=== PATIENT | female | born 1995 | race Native Hawaiian/Other Pacific Islander ===

== ENCOUNTER 2017-09-01 11:20 | Inpatient (IN) | payer SELFPAY ==
[2017-09-01] MEDS ORDERED: Sodium Chloride 0.9% 1,000 ML IV STA (12:05)
--- NOTE | 2017-09-01 12:35 | ED PDOC ---
HPI: Psych/Substance Abuse Time Seen by Provider: 09/01/17 11:47 Chief Complaint (Nursing): Psychiatric Evaluation Chief Complaint (Provider): Psychiatric evaluation History Per: Patient History/Exam Limitations: no limitations Onset/Duration Of Symptoms: Hrs (several) Suicide/Self Injury Attempted (Context): Cut Wrists Modifying Factor(s): None Associated Symptoms: Suicidal Thoughts, Suicidal Plan (cut her wrist) Additional Complaint(s): Nikolas Rico is a 22 year old female, with no past medical history, who was brought to the emergency department by EMS after she cut her wrist onset several hours ago. She denies any homicidal ideations, taking pills, alcohol or drugs. No further medical complaints. PMD: None provided. Past Medical History Reviewed: Historical Data, Nursing Documentation, Vital Signs Vital Signs: Last Vital Signs Temp 99.8 F H 09/01/17 11:28 Pulse 80 09/01/17 11:28 Resp 20 09/01/17 11:28 BP 117/83 09/01/17 11:28 Pulse Ox 100 09/01/17 11:28 - Family History Family History: States: Unknown Family Hx - Home Medications Home Medications: Ambulatory Orders Medication Instructions Recorded No Known Home Med 09/01/17 - Allergies Allergies/Adverse Reactions: Allergies Allergy/AdvReac Type Severity Reaction Status Date / Time No Known Allergies Allergy Verified 09/01/17 12:03 Review of Systems ROS Statement: Except As Marked, All Systems Reviewed And Found Negative Psych: Positive for: Suicidal ideation (with attempt. Cut her wrists). Negative for: Other (Homicidal ideation) Physical Exam - Reviewed Nursing Documentation Reviewed: Yes Vital Signs Reviewed: Yes - Physical Exam Appears: Positive for: Non-toxic. Negative for: Well (lethargic but responsive to verbal stimuli) Head Exam: Positive for: ATRAUMATIC, NORMAL INSPECTION, NORMOCEPHALIC Skin: Positive for: Normal Color, Warm, Dry Eye Exam: Positive for: Normal appearance, EOMI, PERRL Neck: Positive for: Normal, Painless ROM, Supple Cardiovascular/Chest: Positive for: Regular Rate, Rhythm. Negative for: Murmur Respiratory: Positive for: Normal Breath Sounds. Negative for: Respiratory Distress Pulses-Radial (L): 1+ Gastrointestinal/Abdominal: Positive for: Normal Exam, Bowel Sounds, Soft. Negative for: Tenderness, Guarding, Rebound Back: Positive for: Normal Inspection. Negative for: L CVA Tenderness, R CVA Tenderness Extremity: Positive for: Normal ROM, Other (x2 4cm lacerations to left anterior wrist, FROM all joints of hand, FROM @ wrist, sensation intact, MS 5/5, <3 sec cap refill). Negative for: Deformity, Swelling Neurologic/Psych: Positive for: Alert, Oriented - Laboratory Results Result Diagrams: 09/01/17 12:51 09/01/17 12:51 - ECG O2 Sat by Pulse Oximetry: 100 (RA) Pulse Ox Interpretation: Normal Medical Decision Making Medical Decision Making: Initial Impression: Suicidal attempt, wrist laceration Initial Plan: --Head w/o contrast [CT] --EKG --Acetaminophen --Alcohol Serum --Comp Metabolic Panel --Drug screen, Urine --HCQ, Qualitative Serum --Salicylate --Crisis evaluation --Urine dipstick --Urine --CBC w/ differential --NS IV 1,000 ml @ 1,000 mls/hr --Adacel 0.5 ml IM --1:1 Obs for suicide precaution --reevaluation 1300 -The area was prepped and draped in the usual sterile fashion. 3 ccs of 1% Lidocaine w/ epi was used. The wound was closed with 4.0 proline and dermabond. There was adequate approximation. In total, 9 sutures were used. Good closure and hemostasis. The patient tolerated the procedure well and there were no complications. CSM remains intact. Post procedure dressing applied. [address] IMPRESSION: Normal CT of the head Scribe Attestation: Documented by Khurram Alvarez, acting as a scribe for Tamy Lewis MD Provider Scribe Attestation: All medical record entries made by the Scribe were at my direction and personally dictated by me. I have reviewed the chart and agree that the record accurately reflects my personal performance of the history, physical exam, medical decision making, and the department course for this patient. I have also personally directed, reviewed, and agree with the discharge instructions and disposition. Procedures - Laceration/Wound Repair Left Anterior Wrist Wound Length (cm): 4 Wound's Depth, Shape: superficial Wound Explored: clean Anesthesia: Lidocaine w/ Epi (1%) Volume Anesthetic (ccs): 3 Wound Repaired With: Sutures, Skin adhesive (dermabond) Suture Size/Type: 4:0, proline Number of Sutures: 9 Wound Complexity: Simple Disposition - Clinical Impression Clinical Impression: Wrist laceration, Depression - Disposition Disposition Time: 15:55 Condition: STABLE - Pt Status Changed To: Hospital Disposition Of: Inpatient - Admit Certification Admit to Inpatient:: After my assessment, the patient will require hospitalization for at least two midnights. This is because of the severity of symptoms shown, intensity of services needed, and/or the medical risk in this patient being treated as an outpatient. - POA Present On Arrival: Falls Or Trauma
[2017-09-01] MEDS ORDERED: Lidocaine 2% w Epi 1:100,000 Inj IJ ONE (12:44)
[2017-09-01 13:16] LABS: BASO % 0.6 % (0.0-2.0); EOS % 0.1 % (0.0-4.0); HEMATOCRIT 30.5 % (34.0-47.0); LYMPH # 1.2 K/uL (1.0-4.3); LYMPH % 33.7 % (20.0-40.0); MEAN CELL VOLUME 75.3 fl (81.0-99.0); MEAN CORPUSCULAR HEMOGLOBIN 23.3 pg (27.0-31.0); MEAN CORPUSCULAR HGB CONC 30.9 g/dL (33.0-37.0); MEAN PLATELET VOLUME 9.6 fl (7.2-11.7); MONO # 0.3 K/uL (0.0-0.8); MONO % 8.3 % (0.0-10.0); NEUT # 2.1 K/uL (1.8-7.0); NEUT % 57.3 % (50.0-75.0); WHITE BLOOD COUNT 3.7 K/uL (4.8-10.8)
[2017-09-01 13:27] LABS: ALB/GLOB RATIO 1.5 (1.0-2.1); ALKALINE PHOSPHATASE 40 U/L (38-126); ALT/SGPT 30 U/L (9-52); AST/SGOT 18 U/L (14-36); BILIRUBIN,TOTAL 0.3 mg/dl (0.2-1.3); BLOOD UREA NITROGEN 17 mg/dl (7-17); CALCIUM 8.9 mg/dL (8.4-10.2); CARBON DIOXIDE 24 mmol/L (22-30); CHLORIDE 108 mmol/L (98-107); GFR AFRICAN-AMERICAN > 60; GLUCOSE,RANDOM 96 mg/dL (65-105); POTASSIUM 3.7 MMOL/L (3.6-5.0); SODIUM 143 mmol/l (132-148); TOTAL PROTEIN 7.7 G/DL (6.3-8.2)
--- NOTE | 2017-09-01 13:47 | CT ---
PROCEDURE: CT HEAD WITHOUT CONTRAST. HISTORY: SI COMPARISON: None available. TECHNIQUE: Axial computed tomography images were obtained through the head/brain without intravenous contrast. Radiation dose: Total exam DLP = 1252.8 mGy-cm. This CT exam was performed using one or more of the following dose reduction techniques: Automated exposure control, adjustment of the mA and/or kV according to patient size, and/or use of iterative reconstruction technique. FINDINGS: HEMORRHAGE: No intracranial hemorrhage. BRAIN: No mass effect or edema. No atrophy or chronic microvascular ischemic changes. VENTRICLES: Unremarkable. No hydrocephalus. CALVARIUM: Unremarkable. PARANASAL SINUSES: Unremarkable as visualized. No significant inflammatory changes. MASTOID AIR CELLS: Unremarkable as visualized. No inflammatory changes. OTHER FINDINGS: None. IMPRESSION: Normal CT of the Head.
[2017-09-01 18:05] VITALS: O2SAT 100
[2017-09-01] MEDS ORDERED: Magnesium Hydroxide Susp 30 ml UD PO PRN (20:05)
--- NOTE | 2017-09-01 20:22 | PCM.BM ---
<MineMarkken Decker - Last Filed: 09/01/17 20:20> Treatment Plan Problems - Problems identified on initial assessmt Hopelessness/Helplessness Date Initiated: 09/01/17 Assessment reference: NA Status: Active Altered Sleep Patterns Date Initiated: 09/01/17 Assessment reference: NA Status: Active Treatment assets and liabiliti Patient Assests: adapts well, educated, ADL independent, physically healthy, cognitively intact Patient Liabilities: poor support system, language/speech - Milieu Protocol Maintain good personal hygiene: daily Assist patient to perform ADL's, every shift Encourage regular showers, every shift Remind patient to perform daily oral care Conduct patient checks and document Observation sheet: Q15 minutes Maintain personal safety: daily Educate patient to report safety concerns to staff, daily Monitor environment for contraband/sharps Medication safety: Monitor for expected outcome, potential side effects: daily, Assess barriers to learning: daily, Assess readiness for medication education: every shift <Ezequiel Dutton - Last Filed: 09/04/17 14:03> - Diagnosis (1) Depression Status: Acute Interventions: 09/04/17 14:03 psychotherapy, pharmacotherapy <John Ruth - Last Filed: 09/04/17 15:18> Family Contact Family involvement: Famliy/SO not involved Family contact: Patient agrees to contact, Telephone contact initiated by staff Family contact name: Jennifer (friend) - [phone] Family contacted how many times per week?: 1 Family contact comment: Jennifer is pt's roommate who reported she does not really know pt as she only moved in 5 months ago and is fairly isolative. Pt's family and main supports all reside in [place] so obtaining collateral from them is not possible. - Goals for Treatment Patient goals for treatment: Pt lacks insight and could not offer goals, except to be discharged and complete her school work. Discharge/Continuing Care - Education Needs Education Needs: Patient Medication, Patient Diagnosis/Disease Process, Patient Coping Skills, Patient Community resources, Patient Personal Hygiene/Grooming, Patient Aftercare Safety Plan - Discharge Discharge Criteria: Tolerates medication w/o severe side effects, Free of Suicidal thoughts, Free of agitation, Normal sleep pattern, Reduction of target symptoms Discharge to:: Home - Additional Comments 09/04/17 15:17 Pt was agreeable in team, yet lacked appropriate insight. Pt was vague, superficial and placating of staff. - Treatment Team Participation Discussed with Family/SO: No Was Patient/Family/SO present at Treatment Team Meeting: Yes (Pt attended. )
[2017-09-02 07:27] LABS: T4 7.05 ug/dl (5.5-11.0)
[2017-09-02 07:40] LABS: THYROID STIMULATING HORMONE 0.59 mIU/ML (0.46-4.68)
--- NOTE | 2017-09-02 07:48 | CARD ---
APPROVED REPORT EKG Measurement Heart [id number] <Conclusion> Normal sinus rhythm Normal ECG
--- NOTE | 2017-09-02 09:20 | CP.PCM.CON ---
History of Present Illness - History of Present Illness History of Present Illness: Hospitalist Consult Note 22 year old female patient unremarkable PMHx admitted to psychiatric unit for suicidal ideation. Patient is AAOx3, pleasant, cooperative, NAD. Patient states she was brought to [facility] ED by ambulance after she cut the inside of her left wrist several hours prior to presentation. Patient denies suicidal or homicidal ideations. Patient denies auditory or visual hallucinations. Patient denies any acute events overnight. Patient otherwise denies any medical problems. Denies N/V/F/D/C/SOB/palpitations. PMHx: unremarkable PSH: denies FH: denies SH: denies ETOH/tobacco/illicit drug use; student at [employer] Meds: none All: NKDA Review of Systems - Review of Systems All systems: reviewed and no additional remarkable complaints except (as per HPI ) Past Patient History - Past Social History Smoking Status: denies - CARDIAC Hx Cardiac Disorders: No Hx Hypertension: No - PULMONARY Hx Respiratory Disorders: No Hx Tuberculosis: No - NEUROLOGICAL Hx Neurological Disorder: No HX Cerebrovascular Accident: No Hx Seizures: No - HEENT Hx HEENT Problems: No - RENAL Hx Chronic Kidney Disease: No - ENDOCRINE/METABOLIC Hx Endocrine Disorders: No - HEMATOLOGICAL/ONCOLOGICAL Hx Blood Disorders: No Hx Cancer: No Hx Human Immunodeficiency Virus (HIV): No - INTEGUMENTARY Hx Dermatological Problems: No - MUSCULOSKELETAL/RHEUMATOLOGICAL Hx Musculoskeletal Disorders: No - GASTROINTESTINAL Hx Gastrointestinal Disorders: No - GENITOURINARY/GYNECOLOGICAL Hx Genitourinary Disorders: No Hx Sexually Transmitted Disorders: No - PSYCHIATRIC Hx Substance Use: No - SURGICAL HISTORY Hx Surgeries: No - ANESTHESIA Hx Anesthesia: No Meds Allergies/Adverse Reactions: Allergies Allergy/AdvReac Type Severity Reaction Status Date / Time No Known Allergies Allergy Verified 09/01/17 12:03 - Medications Medications: Current Medications Acetaminophen (Tylenol 325mg Tab) 650 mg PO Q4 PRN PRN Reason: Pain, moderate (4-7) Diphenhydramine HCl (Benadryl) 50 mg PO HS PRN PRN Reason: Sleep Lorazepam (Ativan) 1 mg PO Q4 PRN PRN Reason: Anxiety/Agitation Last Admin: 09/01/17 21:51 Dose: 1 mg Magnesium Hydroxide (Milk Of Magnesia) 30 ml PO HS PRN PRN Reason: Constipation Physical Exam - Constitutional Appears: Well, Non-toxic, No Acute Distress - Head Exam Head Exam: ATRAUMATIC, NORMAL INSPECTION, NORMOCEPHALIC - Eye Exam Eye Exam: EOMI, Normal appearance, PERRL Pupil Exam: NORMAL ACCOMODATION - ENT Exam ENT Exam: Mucous Membranes Moist, Normal Exam, Normal External Ear Exam - Neck Exam Neck exam: Positive for: Full Rom, Normal Inspection. Negative for: Tenderness - Respiratory Exam Respiratory Exam: Clear to Auscultation Bilateral, NORMAL BREATHING PATTERN. absent: Rales, Rhonchi, Wheezes - Cardiovascular Exam Cardiovascular Exam: REGULAR RHYTHM, +S1, +S2. absent: Diastolic murmur, Gallop , JVD, Systolic Murmur - GI/Abdominal Exam GI & Abdominal Exam: Normal Bowel Sounds, Soft. absent: Guarding, Tenderness - Rectal Exam Rectal Exam: Deferred - Extremities Exam Additional comments: Dressing to left wrist appears clean/dry/intact with no strikethrough noted. No tenderness to palpation left wrist. Mild pain upon ROM left wrist. Nonpitting edema noted to left hand. No edema noted to left forearm. - Back Exam Back exam: FULL ROM, NORMAL INSPECTION. absent: CVA tenderness (L), CVA tenderness (R), tenderness - Neurological Exam Neurological exam: Alert, CN II-XII Intact, Oriented x3 - Psychiatric Exam Psychiatric exam: Normal Affect, Normal Mood - Skin Skin Exam: Normal Color, Warm Results - Vital Signs Recent Vital Signs: Last Vital Signs Temp 97.2 F L 09/01/17 19:30 Pulse 68 09/01/17 20:04 Resp 18 09/01/17 20:04 BP 110/65 09/01/17 19:30 Pulse Ox 100 09/01/17 18:05 - Labs Result Diagrams: 09/01/17 12:51 09/01/17 12:51 Labs: Laboratory Results - last 24 hr 09/01/17 09/01/17 09/01/17 12:51 12:51 12:51 WBC 3.7 L RBC 4.05 Hgb 9.4 L Hct 30.5 L MCV 75.3 L MCH 23.3 L MCHC 30.9 L RDW 18.0 H Plt Count 145 MPV 9.6 Neut % (Auto) 57.3 Lymph % (Auto) 33.7 [place] % (Auto) 8.3 Eos % (Auto) 0.1 Baso % (Auto) 0.6 Neut # 2.1 Lymph # 1.2 [place] # 0.3 Eos # 0.0 Baso # 0.0 Sodium Potassium Chloride Carbon Dioxide Anion Gap BUN Creatinine Est GFR ( Amer) Est GFR (Non-Af Amer) Random Glucose Calcium Total Bilirubin AST ALT Alkaline Phosphatase Total Protein Albumin Globulin Albumin/Globulin Ratio Triglycerides Cholesterol LDL Cholesterol Direct HDL Cholesterol Thyroxine (T4) TSH 3rd Generation Serum HCG, Qual Salicylates < 1.0 Urine Opiates Screen Urine Methadone Screen Acetaminophen < 10.0 L Ur Barbiturates Screen Ur Phencyclidine Scrn Ur Amphetamines Screen U Benzodiazepines Scrn U Oth Cocaine Metabols U Cannabinoids Screen Alcohol, Quantitative < 10 09/01/17 09/01/17 09/02/17 12:51 19:26 06:45 WBC RBC Hgb Hct MCV MCH MCHC RDW Plt Count MPV Neut % (Auto) Lymph % (Auto) [place] % (Auto) Eos % (Auto) Baso % (Auto) Neut # Lymph # [place] # Eos # Baso # Sodium 143 Potassium 3.7 Chloride 108 H Carbon Dioxide 24 Anion Gap 15 BUN 17 Creatinine 0.8 Est GFR ( Amer) > 60 Est GFR (Non-Af Amer) > 60 Random Glucose 96 Calcium 8.9 Total Bilirubin 0.3 AST 18 ALT 30 Alkaline Phosphatase 40 Total Protein 7.7 Albumin 4.6 Globulin 3.1 Albumin/Globulin Ratio 1.5 Triglycerides 53 Cholesterol 158 LDL Cholesterol Direct 96 HDL Cholesterol 38 Thyroxine (T4) 7.05 TSH 3rd Generation 0.59 Serum HCG, Qual Negative Salicylates Urine Opiates Screen Negative Urine Methadone Screen Negative Acetaminophen Ur Barbiturates Screen Negative Ur Phencyclidine Scrn Negative Ur Amphetamines Screen Negative U Benzodiazepines Scrn Negative U Oth Cocaine Metabols Negative U Cannabinoids Screen Negative Alcohol, Quantitative Assessment & Plan (1) Self mutilating behavior Assessment and Plan: Management per psychiatry Status: Acute
[2017-09-02 13:32] LABS: IRON 24 ug/dL (37-170)
--- NOTE | 2017-09-02 14:38 | PCM.PSYCH ---
Initial Psychiatric Evaluation - Initial Psychiatric Evaluation Type of Admission: Voluntary Legal Status: Capacity Chief Complaint (in patient's own words): i always have bad luck so I was sad Patient's Reaction to Hospitalization: pt signed voluntary History of Present Illness and Precipitating Events: Patient is a 22 year old single female without previous formal psychiatric diagnosis or treatment, business student at [employer] Patient called the ambulance yesterday after she cut her left wrist. Patient' s self inflicted wounds were deep and nedded treatment in ER She IS BY HERSELF NO FAMILY, stated that life has her stressed out.PT minimizes her attempt and her symptoms, stated she was upset because of concert she wanted to attend, pt presenting with circumstantial thought process and limited insight, denied any current S/H I denied perceptual disturbances. [ ] Current Medications: Active Medications Generic Name Dose Route Start Last Admin Trade Name Freq PRN Reason Stop Dose Admin Acetaminophen 650 mg 09/01/17 20:05 Tylenol 325mg Tab PO Q4 PRN Pain, moderate (4-7) Diphenhydramine HCl 50 mg 09/01/17 20:10 Benadryl PO HS PRN Sleep Escitalopram Oxalate 5 mg 09/03/17 12:14 Lexapro PO DAILY EMILIANA Lorazepam 1 mg 09/01/17 20:05 09/01/17 21:51 Ativan PO 1 mg Q4 PRN Administration Anxiety/Agitation Magnesium Hydroxide 30 ml 09/01/17 20:05 Milk Of Magnesia PO HS PRN Constipation Past Psychiatric History - Past Psychiatric History Explanation of prior treatment: pt denied any previous psychiatric treatment History of Abuse: denied History of ETOH/Drug Use: denied History of Family Illness: denied Pertinent Medical Hx (Current Medical&Sleep Prob, Allergies): Allergies Allergy/AdvReac Type Severity Reaction Status Date / Time No Known Allergies Allergy Verified 09/01/17 12:03 No Known Home Med 09/01/17 Mental Status Examination - Personal Presentation Personal Presentation: Looks stated age - Affect Affect: Flat - Motor Activity Motor Activity: Psychomotor Retardation - Reliability in Providing Information Reliability in Providing Information: Poor, due to altered mood - Speech Speech: Tangential - Mood Mood: Depressed Additional comments: inappropriate affect - Formal Thought Process Formal Thought Process: Circumstantial - Hallucinations/Delusions Additional comments: denied perceptual disturbances, non elicited - Obsessions/Compulsions Obsessions: No Compulsions: No - Cognitive Functions Orientation: Person, Place Attention/Concentration: Easily distracted Abstract Thinking: [place] Judgement: Imparied, as evidence by: Lack of insight into illness Memory: Recent intact, as evidence by: Ability to recall events of the day - Risk Risk: Suicidal, Self-mutilation - Strength & Assets Inventory Strength & Assets Inventory: Education - Limitations Additional comments: poor insight, poor social support DSM 5 DX - DSM 5 DSM 5 Diagnosis: depression - Recommended/Plan of Treatment Treatment Recommendations and Plan of Treatment: start lexapro 5 mg with plan to uptitrate CBT and group therapy monitor pt for psychopharmacological effect and side effect profile
[2017-09-02 21:22] LABS: FOLATE 6.4 ng/mL
--- NOTE | 2017-09-03 10:26 | PCM.PYCHPN ---
Psychiatric Progress Note - Psychiatric Progress Note Patient seen today, length of contact: pt evaluated discussed with team chart reviewed Patient Chief Complaint: I want to go home Problems Identified/Issues Discussed: pt seen in bed, isolative, refused to attend groups yesterday, pt minimizing her symptoms, guarded with limited insight into her illness denies any current S/H I denied perceptual disturbances, refusing after care Medical Problems: pt denied any previous psychiatric treatment DSM 5 Symptoms Update: major depression Medication Change: Yes (increase lexapro) Medical Record Reviewed: Yes Mental Status Examination - Cognitive Function Orientation: Person, Place Attention: WNL Concentration: WNL Association: WNL Fund of Knowledge: [facility] Decription of patient's judgement and insights: poor judgment, poor impulse control limited insight , l - Mood Mood: Depressed - Affect Affect: Flat Additional comments: not appropriate to thought content with isolation of affect - Speech Speech: Soft - Formal Thought Process Formal Thought Process: Circumstantial Psychotic Thoughts and Behaviors: pt denied any psychotic symptoms , non elicited - Suicidal Ideation Suicidal Ideation: No - Homicidal Ideation Homicidal Ideation: No Goal/Treatment Plan - Goal/Treatment Plan Progress Toward Problem(s) and Goals/Treatment Plan: increase exapro to 10 mg CBT and group therapy monitor pt for psychopharmacological effect and side effect profile
--- NOTE | 2017-09-03 12:13 | US ---
PROCEDURE: HISTORY: Cut L wrist COMPARISON: None available. STUDY DESCRIPTION: TECHNIQUE: Grayscale and duplex Doppler evaluation of the bilateral upper extremities was performed. Report prepared by technologist and radiologist. FINDINGS: RIGHT UPPER EXTREMITY: * Right arm was not imaged. . LEFT UPPER EXTREMITY: * Prox SCA : Peak Systolic Velocity - 102 centimeters/second: Doppler Waveform: Triphasic.: Plaque description - * Distal SCA: Peak Systolic Velocity - 102 centimeters/second: Doppler Waveform: Triphasic.: Plaque description - * Axillary: Peak Systolic Velocity - 69 centimeters/seconds. Normal doppler Waveform: Triphasic.: Plaque description - * Brachial o Proximal Segment: Peak Systolic Velocity - 77 centimeters/sec: Doppler Waveform: Triphasic.: Plaque description - none o Distal Segment: Peak Systolic Velocity - 94 cm/sec: Doppler Waveform: Triphasic.: Plaque description - none * Radial o Proximal Segment: Peak Systolic Velocity - 34 centimeters/second: Doppler Waveform: Triphasic.: Plaque description - none o Distal Segment: Peak Systolic Velocity - patent: Doppler Waveform: Triphasic.: Plaque description - * Ulnar o Proximal Segment: Peak Systolic Velocity - 62 cm/sec: Doppler Waveform: Triphasic.: Plaque description - no appreciable injury. o Distal Segment: Peak Systolic Velocity - patent: Doppler Waveform: Triphasic.: Plaque description - no appreciable injury. OTHER FINDINGS: Left common carotid artery patent. IMPRESSION: No appreciable duplex ultrasound evidence of left arm arterial injury or occlusion. This agrees with preliminary report provided by [facility]. If there is strong clinical concern CTA or MRA should be obtained.
--- NOTE | 2017-09-04 14:25 | PCM.PYCHPN ---
Psychiatric Progress Note - Psychiatric Progress Note Patient seen today, length of contact: pt evaluated discussed with team chart reviewed Patient Chief Complaint: I did not think it was a big deal, I do not need help Problems Identified/Issues Discussed: pt evaluated in treatment team, patient presenting with isolation of affect, smiling when discussing her suicidal attempt, rationalizing the fact that she did cut her wrist , refusing to be linked to after care and minimizing her symptoms, pt not attending groups tends to be isolative guarded with limited insight into her illness, denies any current S/H I denied perceptual disturbances, spoke with room mate gregory verma [phone] upon pt consent she stated she knows pt since july however pt tends to keep to herself and to be isolative in her room, so unable to give any information in reference to pt Medical Problems: non reported DSM 5 Symptoms Update: major depression Medication Change: No Medical Record Reviewed: Yes Mental Status Examination - Cognitive Function Orientation: Person, Place Attention: WNL Concentration: Poor Association: WNL Fund of Knowledge: WNL Decription of patient's judgement and insights: poor judgment, poor impulse control limited insight , l - Mood Mood: Depressed - Affect Affect: Flat Additional comments: isolation of affect, inappropriate to thought content - Speech Speech: Soft - Formal Thought Process Formal Thought Process: Circumstantial Psychotic Thoughts and Behaviors: pt denied any psychotic symptoms , non elicited, yet presents with lack of touch with reality - Suicidal Ideation Suicidal Ideation: No - Homicidal Ideation Homicidal Ideation: No Goal/Treatment Plan - Goal/Treatment Plan Need for Continued Stay: Severe depression anxiety, Discharge may exacerbated symptoms Progress Toward Problem(s) and Goals/Treatment Plan: pt continues to minimize her symptoms, and refusing to be linked to psychiatric services requesting discharge and signed 48 hour notice, pt at current mental status continues to be high risk and needs continuity of care, with poor social support on the outside pt referred to screening services for possible involuntary admission and continuity of care continue with lexapro to 10 mg CBT and group therapy monitor pt for psychopharmacological effect and side effect profile
[2017-09-04 16:27] LABS: RBC URINE 662 /hpf (0-3); URINE BACTERIA OCC (<OCC); URINE BILIRUBIN NEGATIVE (NEGATIVE); URINE BLOOD LARGE (NEGATIVE); URINE COLOR RED (YELLOW); URINE GLUCOSE (UA) NEG (Normal); URINE KETONE NEGATIVE (NEGATIVE); URINE LEUKOCYTE ESTERASE LARGE Leu/uL (Negative); URINE PROTEIN 100 mg/dL (NEGATIVE); URINE UROBILINOGEN 0.2-1.0 mg/dL (0.2-1.0); WBC URINE 156 /hpf (0-5)
--- NOTE | 2017-09-05 10:31 | RAD ---
PROCEDURE: CHEST RADIOGRAPH, 1 VIEW HISTORY: commit COMPARISON: None available. FINDINGS: LUNGS: Clear. PLEURA: No pneumothorax or pleural fluid seen. CARDIOVASCULAR: Normal. OSSEOUS STRUCTURES: No significant abnormalities. VISUALIZED UPPER ABDOMEN: Normal. OTHER FINDINGS: None. IMPRESSION: No active disease.
--- NOTE | 2017-09-05 11:51 | PCM.PYCHPN ---
Psychiatric Progress Note - Psychiatric Progress Note Patient seen today, length of contact: pt evaluated discussed with team chart reviewed Patient Chief Complaint: pt still feels depressed and admitted for severe depression and cutting he wrist and minimises her depression and wrote a 48 hour and has been accepted for transfer to [facility] [place] Medication Change: No Medical Record Reviewed: Yes Mental Status Examination - Cognitive Function Orientation: Person, Place Attention: WNL Concentration: Poor Association: WNL Fund of Knowledge: WNL - Mood Mood: Depressed - Affect Affect: Flat - Speech Speech: Soft - Formal Thought Process Formal Thought Process: Circumstantial - Suicidal Ideation Suicidal Ideation: No - Homicidal Ideation Homicidal Ideation: No Goal/Treatment Plan - Goal/Treatment Plan Need for Continued Stay: Severe depression anxiety, Discharge may exacerbated symptoms Progress Toward Problem(s) and Goals/Treatment Plan: continue to stabilize with meds . transfer the pt to [facility] when arranged.
[2017-09-05 16:51] VITALS: PULSE 82
[2017-09-05 21:33] VITALS: BP 120/70; RESP 18; TEMP 97.8
== END 2017-09-05 22:35 | DRG 881 ==
LOC: H.ER 11:20 → H.ERHOLD 15:55 → H.PSYCH 19:57
PROVIDERS: ADMIT Psychiatry & Neurology Psychiatry; ATTEND Psychiatry & Neurology Psychiatry
PROC: 0HQGXZZ Repair Left Hand Skin, External Approach (ICD-10-PCS; 2017-09-01)
PROC: GZHZZZZ Group Psychotherapy (ICD-10-PCS; principal; 2017-09-02)
PROC: GZ51ZZZ Individual Psychotherapy, Behavioral (ICD-10-PCS; 2017-09-02)
DX: F32.9 Major depressive disorder, single episode, unspecified (principal); R45.851 Suicidal ideations; S61.512A Laceration without foreign body of left wrist, initial encounter; D64.9 Anemia, unspecified; Z91.5 Personal history of self-harm; X58.XXXA Exposure to other specified factors, initial encounter; Y93.9 Activity, unspecified; Y92.9 Unspecified place or not applicable

== ENCOUNTER 2017-09-09 16:00 | Emergency (ER) | payer SELFPAY ==
[2017-09-09 16:08] VITALS: BP 114/65; PULSE 89; RESP 18; TEMP 97.8; O2SAT 98
--- NOTE | 2017-09-09 16:17 | ED PDOC ---
HPI: Wound Care - HPI Time Seen by Provider: 09/09/17 16:07 Chief Complaint (Nursing): Suture/Staple Removal Chief Complaint (Provider): suture removal History Per: Patient Exam Limitations: no limitations Onset/Duration Of Symptoms: Days (x8) Current Symptoms Are (Timing): Still Present Additional Complaint(s): Nikolas Rico is a 22 year old female who presents to the emergency department for wound check and suture removal of laceration to left wrist. Patient reports that sutures and glue were placed 8 days ago. She denies any associated pain, drainage, or fever. PMD: none Past Medical History Reviewed: Historical Data, Nursing Documentation, Vital Signs Vital Signs: Last Vital Signs Temp 97.8 F 09/09/17 16:05 Pulse 89 09/09/17 16:05 Resp 18 09/09/17 16:05 BP 114/65 09/09/17 16:05 Pulse Ox 98 09/09/17 16:05 - Medical History PMH: No Chronic Diseases - Surgical History Surgical History: No Surg Hx - Family History Family History: States: No Known Family Hx - Living Arrangements Living Arrangements: With Family - Social History Current smoker - smoking cessation education provided: No Alcohol: None Drugs: Denies - Immunization History Hx Tetanus Toxoid Vaccination: Yes - Home Medications Home Medications: Ambulatory Orders Medication Instructions Recorded No Known Home Med 09/01/17 - Allergies Allergies/Adverse Reactions: Allergies Allergy/AdvReac Type Severity Reaction Status Date / Time No Known Allergies Allergy Verified 09/01/17 12:03 Review of Systems ROS Statement: Except As Marked, All Systems Reviewed And Found Negative Constitutional: Negative for: Fever, Chills Skin: Positive for: Other (wound check and suture removal of left wrist laceration) Physical Exam - Reviewed Nursing Documentation Reviewed: Yes Vital Signs Reviewed: Yes - Physical Exam Appears: Positive for: Well, Non-toxic, No Acute Distress Head Exam: Positive for: ATRAUMATIC, NORMAL INSPECTION, NORMOCEPHALIC Skin: Positive for: Normal Color. Negative for: Rash Eye Exam: Positive for: Normal appearance Pulses-Radial (L): 2+ Pulses-Radial (R): 2+ Extremity: Positive for: Normal ROM, Capillary Refill (< 2 sec), Other ( Partially healed laceration to the left medial wrist. Sutures and glue in place. No signs of infection such as erythema or drainage.). Negative for: Tenderness Neurologic/Psych: Positive for: Alert, Oriented - ECG O2 Sat by Pulse Oximetry: 98 (RA) Pulse Ox Interpretation: Normal Medical Decision Making Medical Decision Making: Time: 16:15 Initial Impression: 22 year old female here for wound check and suture removal Initial Plan: --Glue removed along with approximately have the sutures in place. Wound is not fully heeled so all sutures could not be removed at this time. --Patient was instructed to return to ED in 3-4 days to have remaining sutures removed. --Wound care instructions given Scribe Attestation: Documented by Marilou Pelayo, acting as a scribe for Floridalma Walton PA-C Provider Scribe Attestation: All medical record entries made by the Scribe were at my direction and personally dictated by me. I have reviewed the chart and agree that the record accurately reflects my personal performance of the history, physical exam, medical decision making, and the department course for this patient. I have also personally directed, reviewed, and agree with the discharge instructions and disposition. Disposition - Clinical Impression Clinical Impression: Removal of suture - Patient ED Disposition Is Patient to be Admitted: No Counseled Patient/Family Regarding: Diagnosis, Need For Followup - Disposition [facility]errals: [facility] Disposition: Routine/Home Disposition Time: 16:30 Condition: STABLE Additional Instructions: Return to the ER in 3-4 days for removal of remaining sutures. Wash the area once daily with soap and water, and otherwise keep the area dry and do not cover. Return sooner if acutely worse. Instructions: Stitches Removal (ED), Care For Your Stitches (ED) Forms: [employer] ([employer])
== END 2017-09-09 17:37 | disposition home or self-care (01) ==
LOC: H.ER 16:00
DX: Z48.02 Encounter for removal of sutures (principal)

== ENCOUNTER 2017-09-15 17:22 | Emergency (ER) | payer SELFPAY ==
[2017-09-15 17:32] VITALS: BP 118/54; PULSE 84; RESP 18; TEMP 98.6; O2SAT 99
--- NOTE | 2017-09-15 17:48 | ED PDOC ---
HPI: Wound Care - HPI Time Seen by Provider: 09/15/17 17:32 Chief Complaint (Nursing): Suture/Staple Removal Chief Complaint (Provider): suture removal Additional Complaint(s): 22yo f in ER for removal of remaining sutures to left volar wrist. no fever no draainge no swelling. Past Medical History Reviewed: Historical Data, Nursing Documentation, Vital Signs Vital Signs: Last Vital Signs Temp 98.6 F 09/15/17 17:30 Pulse 84 09/15/17 17:30 Resp 18 09/15/17 17:30 BP 118/54 L 09/15/17 17:30 Pulse Ox 99 09/15/17 17:30 - Medical History PMH: Denies: Diabetes, Hepatitis, HIV, HTN, Chronic Kidney Disease, Seizures, Sexually Transmitted Disease - Family History Family History: States: Unknown Family Hx - Immunization History Hx Tetanus Toxoid Vaccination: Yes - Home Medications Home Medications: Ambulatory Orders Medication Instructions Recorded No Known Home Med 09/01/17 - Allergies Allergies/Adverse Reactions: Allergies Allergy/AdvReac Type Severity Reaction Status Date / Time No Known Allergies Allergy Verified 09/01/17 12:03 Review of Systems ROS Statement: Except As Marked, All Systems Reviewed And Found Negative Constitutional: Positive for: Fever Physical Exam - Reviewed Nursing Documentation Reviewed: Yes Vital Signs Reviewed: Yes - Physical Exam Appears: Positive for: Well, Non-toxic, No Acute Distress Skin: Positive for: Normal Color, Warm, Rash (volar wrist left-sutures in place. no wound dehesicence no erythema. ) Neck: Positive for: Painless ROM Neurologic/Psych: Positive for: Alert, Oriented - ECG O2 Sat by Pulse Oximetry: 99 Medical Decision Making Medical Decision Making: sutures removed #5 without complications no further need for ER visits for wound care. Disposition - Clinical Impression Clinical Impression: Removal of suture - Patient ED Disposition Is Patient to be Admitted: No Counseled Patient/Family Regarding: Need For Followup - Disposition Disposition: Routine/Home Disposition Time: 17:48 Condition: STABLE Instructions: Abrasion (ED)
== END 2017-09-15 18:24 | disposition home or self-care (01) ==
LOC: H.ER 17:22
DX: Z48.02 Encounter for removal of sutures (principal)